=== PATIENT | female | born 1995 | race Caucasian/White ===

== ENCOUNTER 2017-04-03 14:19 | Emergency (ER) | payer BC ==
[~2017-04-03] VITALS: Ht 160 cm; Wt 59.0 kg
[2017-04-03 14:24] VITALS: Ht 160 cm; Wt 59.0 kg
[2017-04-03] MEDS ORDERED: IBUP400T22 PO (15:29)
--- NOTE | 2017-04-03 15:30 | RADRPT ---
PROCEDURE: XR Foot. CLINICAL INDICATION: Left foot pain. Trauma. TECHNIQUE: Three views of the left foot are available for review. COMPARISON: None available FINDINGS: The osseous structures, articular spaces, and surrounding soft tissues are intact. No acute fractur e or dislocation is seen. No radiopaque foreign body is identified. Bony mineralization is normal. There is a marker pointing towards the left fifth digit. No abnormality of the left fifth digit is seen. IMPRESSION: 1. Unremarkable left foot x-ray series. 2. Unremarkable left fifth digit as well. RPTAT: HMJB .Dillon Christian MD, MD Date Time Electronically viewed and signed by .Dillon Christian MD, MD on 04/03/2017 15:29 .B/
--- NOTE | 2017-04-03 15:45 | ERA ---
ER Documentation Chief Complaint Date/Time DATE: 04/03/17 TIME: 15:42 Chief Complaint LEFT FOOT PAIN S/P SOMEONE STEPPED ON FOOT TODAY AROUND 1100 HPI This is a 22-year-old female presenting with the chief complaints of left foot trauma 1 hour ago. Patient was at work when a tall coworker stepped on her foot. Patient has taken Advil with moderate relief and refuses other pain medications at this time. Pain is 3 out of 10 and 7 out of 10 with walking. Patient denies tingling, numbness. Has no other complaints and describes no other associated manifestations. ROS All systems reviewed and are negative except as per history of present illness. Medications Home Meds Active Scripts Ibuprofen* (Motrin*) 400 Mg Tab, 400 MG PO Q6, #30 TAB Prov:COBY TAYLOR PA-C 04/03/17 Allergies Allergies: Coded Allergies: No Known Allergies (Verified Allergy, Mild, 12/10/09) PMhx/Soc History of Surgery: No Anesthesia Reaction: No Hx Neurological Disorder: No Hx Respiratory Disorders: No Hx Cardiac Disorders: No Hx Psychiatric Problems: No Hx Miscellaneous Medical Probl: No Hx Alcohol Use: No Hx Substance Use: No Hx Tobacco Use: No Smoking Status: Never smoker Physical Exam Vitals Vital Signs Date Time Temp Pulse Resp B/P Pulse Ox O2 Delivery O2 Flow Rate FiO2 04/03/17 14:24 97.6 92 18 104/58 98 Physical Exam Const: Well-appearing well-developed 22-year-old female in no acute distress Head: Atraumatic Eyes: Normal Conjunctiva ENT: Normal External Ears, Nose and Mouth. Neck: Full range of motion..~ No meningismus. Resp: Clear to auscultation bilaterally Cardio: Regular rate and rhythm, no murmurs Abd: Soft, non tender, non distended. Normal bowel sounds Skin: As noted in the extremity exam. No petechiae or rashes Back: No midline or flank tenderness Ext: Left mill tender second operator over the fourth and fifth metatarsals with mild hematoma noted. No edema, erythema, cyanosis or clubbing; no skin tenting noted on hands or feet bilaterally. Neur: Awake and alert Psych: Normal Mood and Affect Procedures/MDM 22-year-old female presenting one hour status post left foot injury. Physical exam was remarkable for tenderness over the affected area. X-ray was obtained read by the radiologist given the impression of unremarkable. At this time of little suspicion for bony pathology or neurovascular compromise. Patient was discharged with discharge instructions and return precautions. Discharge medications: Ibuprofen Departure Diagnosis: Primary Impression: Injury of foot Qualified Code: S99.922A - Injury of foot, left, initial encounter Condition: Stable Patient Instructions: Contusion, Foot Referrals: PEPE DUNCAN MD (PCP) Additional Instructions: Follow up with your PCP within the next 1-3 days for a more thorough evaluation and a possible referral to a specialist. Return the the emergency department immediately if symptoms worsen or change. If you have any questions regarding medications, ask your pharmacist or us before you leave. If any adverse reactions occur while taking your medications, discontinue the treatment and return to the emergency department immediately. Take your medications as directed, and complete the entire course of treatment. COBY TAYLOR PA-C Apr 03, 2017 15:45
== END 2017-04-03 15:49 | disposition home or self-care (01) ==
LOC: FTE 14:19
DX: S99.922A Unspecified injury of left foot, initial encounter (principal); W50.0XXA Accidental hit or strike by another person, initial encounter; Y92.89 Other specified places as the place of occurrence of the external cause
CPT/HCPCS: 73630; Z7502